=== PATIENT | female | born 1990 | race Caucasian/White ===

== ENCOUNTER 2016-08-29 23:40 | Emergency (ER) | payer MEDICAID ==
[~2016-08-29] VITALS: Ht 154.9 cm; Wt 55.0 kg
[~2016-08-29 23:40] MED LIST: DOCU-30 PO; IBUP-1222 PO
[2016-08-30 00:51] VITALS: BP 115/70
== END 2016-08-30 02:23 | disposition home or self-care (01) ==
LOC: ED 23:59
DX: S00.531A Contusion of lip, initial encounter (principal); S00.83XA Contusion of other part of head, initial encounter; G89.11 Acute pain due to trauma; R51 Headache; F10.10 Alcohol abuse, uncomplicated; Y04.8XXA Assault by other bodily force, initial encounter; Y93.89 Activity, other specified; Y99.8 Other external cause status; Y92.39 Other specified sports and athletic area as the place of occurrence of the external cause
CPT/HCPCS: 70450; 70486; 72125